=== PATIENT | male | born 1950 | race Caucasian/White ===

== ENCOUNTER → 2016-08-06 | Outpatient (CLI) | payer BC | END | disposition home or self-care (01) | LOC: MW.CHUR 08:37 | PROVIDERS: ATTEND Urology | DX: R97.20 Elevated prostate specific antigen [PSA] (principal); N42.9 Disorder of prostate, unspecified | CPT/HCPCS: 36415; 84153 ==

== ENCOUNTER 2017-04-03 21:09 | Emergency (ER) | payer BC, OTHER ==
[2017-04-03] MEDS ORDERED: Ketorolac 30 MG/ML SDV IVPUSH ONE (21:40)
[2017-04-03] MEDS ORDERED: Famotidine 20 MG/2 ML SDV IVPUSH ONE (21:40)
[2017-04-03] MEDS ORDERED: Alum Hydrox/Mag Hydrox/Simeth 15 ML, Metoclopramide 5 MG, Lidocaine 2% 5 ML PO ONE ×3 (21:40)
[2017-04-03] MEDS ORDERED: Aspirin 81 MG Tab.Chew PO ONE (21:40)
[2017-04-03 21:58] LABS: CHLORIDE,CL 107 mmol/L (98-110); SODIUM,NA 141 mmol/L (136-146)
--- NOTE | 2017-04-03 22:48 | EDM.PDOC ---
ED HPI GENERAL MEDICAL PROBLEM - General Chief Complaint: Chest Pain Stated Complaint: CHEST PAIN Time Seen by Provider: 04/03/17 21:30 Source of Information: Reports: Patient History Limitations: Reports: No Limitations - History of Present Illness INITIAL COMMENTS - FREE TEXT/NARRATIVE: History of present illness: [66-year-old male comes in complaining of chest pressure. Patient indicates he has been having the pressure intermittently for the last couple months. Patient indicates only thing that is different today is that he made significant other aware of the pain she is concerned that he is having cardiac issues. Patient has no significant risk factors he is nondiabetic, he does not smoke nor does anyone in his family have a history of cardiac problems.] Review of systems: As per history of present illness and below otherwise all systems reviewed and negative. Past medical history: As per history of present illness and as reviewed below otherwise noncontributory. Surgical history: As per history of present illness and as reviewed below otherwise noncontributory. Social history: No reported history of drug or alcohol abuse. Family history: As per history of present illness and as reviewed below otherwise noncontributory. Physical exam: HEENT: Atraumatic, normocephalic, pupils reactive, negative for conjunctival pallor or scleral icterus, mucous membranes moist, throat clear, neck supple, nontender, trachea midline. Lungs: Clear to auscultation, breath sounds equal bilaterally, chest nontender. Heart: S1S2, regular, negative for clicks, rubs, or JVD. Abdomen: Soft, nondistended, nontender. Negative for masses or hepatosplenomegaly. Negative for costovertebral tenderness. Pelvis: Stable nontender. Genitourinary: Deferred. Rectal: Deferred. Extremities: Atraumatic, negative for cords or calf pain. Neurovascular unremarkable. Neuro: Awake, alert, oriented. Cranial nerves II through XII unremarkable. Cerebellum unremarkable. Motor and sensory unremarkable throughout. Exam nonfocal. Global assessment is benign save the subjective complaint as noted in history of present illness. Patient indicates that the pressure is intermittent and substernal in nature it is nonradiating and it is self-limiting. Patient cannot identify anything that he is doing consistently that is transpiring when the pain occurs nor does he do anything to make the pain. Labs negative EKG negative for any acute findings This chest pain patient describes is subacute we'll dialogue with him in regards to need for further workup such as cardiac treadmill and or thallium stress test. Diagnostics: [CBC, CMP, troponin, chest x-ray, EKG] Therapeutics: [Toradol, GI cocktail, aspirin] Impression: [Atypical chest pain] Plan: [Refer to cardiology and primary care for further management] Definitive disposition and diagnosis as appropriate pending reevaluation and review of above. chest Pain Score (Numeric/FACES): 4 - Related Data Allergies Allergy/AdvReac Type Severity Reaction Status Date / Time No Known Allergies Allergy Verified 04/03/17 21:21 Home Meds: Home Meds . [No Known Home Meds] 04/03/17 [History] Past Medical History - Past Health History Medical/Surgical History: Denies Medical/Surgical History Musculoskeletal History: Reports: Other (See Below) Other Musculoskeletal History: bad shoulder Social & Family History - Family History Family Medical History: Noncontributory - Tobacco Use Smoking Status *Q: Never Smoker - Recreational Drug Use Recreational Drug Use: No ED ROS GENERAL - Review of Systems Review Of Systems: See Below (See history of present illness) ED EXAM, GENERAL - Physical Exam Exam: See Below (See history of present illness) Course - Vital Signs Last Recorded V/S: Last Vital Signs Temp 36.4 C 04/03/17 21:09 Pulse 77 04/03/17 21:09 Resp 20 04/03/17 21:09 BP 161/87 H 04/03/17 21:09 Pulse Ox 95 04/03/17 21:09 - Orders/Labs/Meds Orders: Active Orders 24 hr Category Date Time Status EKG Documentation Completion [RC] STAT Care 04/03/17 21:40 Active Chest 2V [CR] Stat Exams 04/03/17 21:40 Ordered UA W/MICROSCOPIC [URIN] Stat Lab 04/03/17 21:40 Uncollected Saline Lock Insert [OM.PC] Stat Oth 04/03/17 21:40 Ordered Labs: Laboratory Tests 04/03/17 04/03/17 Range/Units 21:20 21:20 WBC 6.57 (4.0-11.0) K/uL RBC 4.27 L (4.50-5.90) M/uL Hgb 14.2 (13.0-17.0) g/dL Hct 41.2 (38.0-50.0) % MCV 96.5 (80.0-98.0) fL MCH 33.3 H (27.0-32.0) pg MCHC 34.5 (31.0-37.0) g/dL RDW Std Deviation 47.7 (28.0-62.0) fl RDW Coeff of Heide 14 (11.0-15.0) % Plt Count 229 (150-400) K/uL MPV 10.30 (7.40-12.00) fL Neut % (Auto) 53.4 (48.0-80.0) % Lymph % (Auto) 32.6 (16.0-40.0) % [place] % (Auto) 10.2 (0.0-15.0) % Eos % (Auto) 3.3 (0.0-7.0) % Baso % (Auto) 0.5 (0.0-1.5) % Neut # (Auto) 3.5 (1.4-5.7) K/uL Lymph # (Auto) 2.1 (0.6-2.4) K/uL [place] # (Auto) 0.7 (0.0-0.8) K/uL Eos # (Auto) 0.2 (0.0-0.7) K/uL Baso # (Auto) 0.0 (0.0-0.1) K/uL Nucleated RBC % 0.0 /100WBC Nucleated RBCs # 0 K/uL Sodium 141 (136-146) mmol/L Potassium 4.0 (3.5-5.1) mmol/L Chloride 107 (98-110) mmol/L Carbon Dioxide 25 (21-31) mmol/L BUN 16 (6.0-23.0) mg/dL Creatinine 1.1 (0.6-1.5) mg/dL Est Cr Clr Drug Dosing 85.50 mL/min Estimated GFR (MDRD) > 60.0 ml/min Glucose 109 (60-110) mg/dL Calcium 9.7 (8.8-10.8) mg/dL Total Bilirubin 0.3 (0.1-1.5) mg/dL AST 34 (5-40) IU/L ALT 45 (8-54) IU/L Alkaline Phosphatase 80 (40-150) Troponin I < 0.10 (0.0-0.29) NG/ML Total Protein 7.6 (6.0-8.0) g/dL Albumin 4.5 (3.4-4.8) g/dL Globulin 3.1 (2.0-3.5) g/dL Albumin/Globulin Ratio 1.5 (1.3-2.8) Amylase 59 (10-90) U/L Lipase 26 (7-80) U/L Meds: Medications Discontinued Medications Generic Name Dose Route Start Last Admin Trade Name Fanny PRN Reason Stop Dose Admin Aspirin 324 mg 04/03/17 21:40 04/03/17 21:55 Aspirin PO 04/03/17 21:41 324 mg ONETIME ONE Administration Al Hydroxide/Mg Hydroxide 15 0 ml 04/03/17 21:40 04/03/17 21:53 ml/ Metoclopramide HCl 5 mg/ PO 04/03/17 21:41 25 each Lidocaine HCl 5 ml ONETIME ONE Administration Famotidine 20 mg 04/03/17 21:40 04/03/17 21:56 Pepcid IVPUSH 04/03/17 21:41 20 mg ONETIME ONE Administration Ketorolac Tromethamine 30 mg 04/03/17 21:40 04/03/17 21:56 Toradol IVPUSH 04/03/17 21:41 30 mg ONETIME ONE Administration Departure - Departure Time of Disposition: 22:47 Disposition: Home, Self-Care 01 Condition: Good Clinical Impression: Atypical chest pain - Discharge Information Referrals: Gibran Thurston MD [Primary Care Provider] - Additional Instructions: The following information is given to patients seen in the emergency department who are being discharged to home. This information is to outline your options for follow-up care. We provide all patients seen in our emergency department with a follow-up referral. The need for follow-up, as well as the timing and circumstances, are variable depending upon the specifics of your emergency department visit. If you don't have a primary care physician on staff, we will provide you with a referral. We always advise you to contact your personal physician following an emergency department visit to inform them of the circumstance of the visit and for follow-up with them and/or the need for any referrals to a consulting specialist. The emergency department will also refer you to a specialist when appropriate. This referral assures that you have the opportunity for follow-up care with a specialist. All of these measure are taken in an effort to provide you with optimal care, which includes your follow-up. Under all circumstances we always encourage you to contact your private physician who remains a resource for coordinating your care. When calling for follow-up care, please make the office aware that this follow-up is from your recent emergency room visit. If for any reason you are refused follow-up, please contact the [facility] Emergency Department at and asked to speak to the emergency department charge nurse. Follow-up with primary care provider for referral to cardiology for more invasive diagnostic tests such as a stress treadmill Turn to ED as needed as discussed - My Orders Last 24 Hours: My Active Orders 04/03/17 21:40 EKG Documentation Completion [RC] STAT Chest 2V [CR] Stat UA W/MICROSCOPIC [URIN] Stat Saline Lock Insert [OM.PC] Stat - Assessment/Plan Last 24 Hours: My Active Orders 04/03/17 21:40 EKG Documentation Completion [RC] STAT Chest 2V [CR] Stat UA W/MICROSCOPIC [URIN] Stat Saline Lock Insert [OM.PC] Stat
--- NOTE | 2017-04-04 09:06 | CR ---
EXAM DATE: 04/03/17 PATIENT'S AGE: 66 Patient: CROW ESPARZA Facility: [place], [place] Site . Site : 1950 Study: XRay Chest [id number]/3/2018 10:53:38 PM Ordering Physician: Doctor Cormier Final Report: INDICATIONS: Chest pain. TECHNIQUE: Chest 2 view. COMPARISON: None FINDINGS: No pneumothorax or pleural effusion. Lungs are clear. Cardiac and mediastinal contours are within normal limits. Upper abdomen and osseous structures show no acute abnormality. IMPRESSION: No evidence of acute cardiopulmonary disease. Dictated by Kendall Holliday MD @ 04/03/2017 10:56:55 PM Dictated by: Kendall Holliday MD @ 04/03/2017 22:57:04 (Electronic Signature) Report Signed by Proxy. [facility]Leon
== END 2017-04-03 23:16 | disposition home or self-care (01) ==
LOC: MW.ED 21:09
DX: R07.89 Other chest pain (principal)
CPT/HCPCS: 71046; 80053; 82150; 83690; 84484; 85025; 96374; 96375; 99285; A9270; J1885; 93005; 99283

== ENCOUNTER 2020-05-05 10:45 | Emergency (ER) | payer MEDICARE, BC ==
[2020-05-05] MEDS ORDERED: Sodium Chloride 0.9% 2.5 ML Syringe FLUSH PRN (10:56)
[2020-05-05] MEDS ORDERED: Sodium Chloride 0.9% 10 ML Syringe FLUSH PRN (10:56)
--- NOTE | 2020-05-05 10:59 | EDM.PDOC ---
ED HPI GENERAL MEDICAL PROBLEM - General Chief Complaint: Abdominal Pain Stated Complaint: abd pain Time Seen by Provider: 05/05/20 10:56 Source of Information: Reports: Patient History Limitations: Reports: No Limitations - History of Present Illness INITIAL COMMENTS - FREE TEXT/NARRATIVE: 69-year-old male with history of right inguinal hernia repair, HTN, HLD presents with abdominal pain. He notes right lower quadrant pain that has been waxing and waning over the past 6 months but today at 7:30 in the morning pain got worse to a 7/10 in severity, described as aching sensation, nonradiating, he was sitting at his chair drinking coffee when it happened. Currently pain is improved to 3/10. Patient denies fever, chills, headache, chest pain, shortness of breath, dysuria, nausea, vomiting, diarrhea, focal numbness or weakness. Last bowel movement was today. ROS: A 10-point review of systems, other than pertinent positives and negatives as stated per HPI, is otherwise negative Past medical history: No additional pertinent history Past Surgical history: No additional pertinent history Social history: No additional pertinent history Family history: No additional pertinent history PHYSICAL EXAM General: AOx4, GCS = 15, No distress HEENT: dry mucous membrane Neck: supple, no meningismus, no Kernig or Brudzinski Cardiac: S1S2 RRR Respiratory: CTAB, no crackles or rales, no wheezing Abdomen: Soft, nontender, no rebound or guarding, nondistended, no pulsatile mass. Back: nontender Musculoskeletal: NVI distally, no deformity Neuro: No focal deficits, CN 2 - 12 WNL. right lower abdominal pain Pain Score (Numeric/FACES): 3 - Related Data Allergies Allergy/AdvReac Type Severity Reaction Status Date / Time Sulfa (Sulfonamide Allergy Other Verified 05/05/20 11:17 Antibiotics) Home Meds: Home Meds Dicyclomine [Bentyl] 10 mg PO QIDACANDBED #12 cap 05/05/20 [Rx] Telmisartan 40 mg PO DAILY 05/05/20 [History] atorvaSTATin [Lipitor] 10 mg PO DAILY 05/05/20 [History] valACYclovir [Valtrex] 500 mg PO DAILY 05/05/20 [History] Past Medical History - Past Health History Medical/Surgical History: Denies Medical/Surgical History Musculoskeletal History: Reports: Other (See Below) Other Musculoskeletal History: bad shoulder Social & Family History - Family History Family Medical History: No Pertinent Family History ED ROS GENERAL - Review of Systems Review Of Systems: See Below (see dictation) ED EXAM, GENERAL - Physical Exam Exam: See Below (see dictation) #1 Interpretation EKG Interpretation Comments: Heart rate = 63bpm, normal sinus rhythm, normal QRS interval, no STEMI. EKG and rhythm strip interpreted by me at 1131 Course - Vital Signs Last Recorded V/S: Last Vital Signs Temp Pulse 70 05/05/20 11:20 Resp 18 05/05/20 11:20 BP 133/81 05/05/20 11:20 Pulse Ox 98 05/05/20 11:20 - Orders/Labs/Meds Orders: Active Orders 24 hr Category Date Time Status Cardiac Monitoring [RC] . DIRECTED Care 05/05/20 10:56 Active EKG Documentation Completion [RC] STAT Care 05/05/20 10:57 Active Pulse Oximetry [RC] ASDIRECTED Care 05/05/20 10:56 Active Sodium Chloride 0.9% [Saline Flush] Med 05/05/20 10:56 Active 10 ml FLUSH ASDIRECTED PRN Sodium Chloride 0.9% [Saline Flush] Med 05/05/20 10:56 Active 2.5 ml FLUSH ASDIRECTED PRN Saline Lock Insert [OM.PC] Stat Oth 05/05/20 10:57 Ordered Medication Orders Sodium Chloride (Saline Flush) 10 ml FLUSH ASDIRECTED PRN PRN Reason: Keep Vein Open Last Admin: 05/05/20 11:26 Dose: 10 ml Documented by: LUIS Sodium Chloride (Saline Flush) 2.5 ml FLUSH ASDIRECTED PRN PRN Reason: Keep Vein Open Last Admin: 05/05/20 11:26 Dose: 2.5 ml Documented by: LUIS Labs: Laboratory Tests 05/05/20 05/05/20 05/05/20 Range/Units 11:25 11:25 11:25 WBC 10.74 (4.0-11.0) K/uL RBC 3.99 L (4.50-5.90) M/uL Hgb 12.8 L (13.0-17.0) g/dL Hct 39.3 (38.0-50.0) % MCV 98.5 H (80.0-98.0) fL MCH 32.1 H (27.0-32.0) pg MCHC 32.6 (31.0-37.0) g/dL RDW Std Deviation 51.1 (28.0-62.0) fl RDW Coeff of [place] 14 (11.0-15.0) % Plt Count 245 (150-400) K/uL MPV 9.80 (7.40-12.00) fL Neut % (Auto) 82.9 H (48.0-80.0) % Lymph % (Auto) 8.3 L (16.0-40.0) % [place] % (Auto) 7.6 (0.0-15.0) % Eos % (Auto) 0.7 (0.0-7.0) % Baso % (Auto) 0.5 (0.0-1.5) % Neut # (Auto) 8.9 H (1.4-5.7) K/uL Lymph # (Auto) 0.9 (0.6-2.4) K/uL [place] # (Auto) 0.8 (0.0-0.8) K/uL Eos # (Auto) 0.1 (0.0-0.7) K/uL Baso # (Auto) 0.1 (0.0-0.1) K/uL Nucleated RBC % 0.0 /100WBC Nucleated RBCs # 0 K/uL Lactate 1.2 (0.20-2.00) mmol/L Sodium 139 (136-148) mmol/L Potassium 4.7 (3.5-5.1) mmol/L Chloride 102 (98-107) mmol/L Carbon Dioxide 26.3 (21.0-32.0) mmol/L BUN 14 (7.0-18.0) mg/dL Creatinine 1.3 (0.8-1.3) mg/dL Est Cr Clr Drug Dosing 69.49 mL/min Estimated GFR (MDRD) 55.1 ml/min Glucose 122 H (74-106) mg/dL Calcium 9.5 (8.5-10.1) mg/dL Total Bilirubin 0.5 (0.2-1.0) mg/dL AST 29 (15-37) IU/L ALT 41 (14-63) IU/L Alkaline Phosphatase 122 H (46-116) U/L Troponin I < 0.050 (0.000-0.056) ng/mL Total Protein 7.7 (6.4-8.2) g/dL Albumin 3.9 (3.4-5.0) g/dL Globulin 3.8 (2.6-4.0) g/dL Albumin/Globulin Ratio 1.0 (0.9-1.6) Lipase 77 (73-393) U/L Urine Color Urine Appearance Urine pH (5.0-8.0) Ur Specific [place] (1.001-1.035) Urine Protein (NEGATIVE) mg/dL Urine Glucose (UA) (NEGATIVE) mg/dL Urine Ketones (NEGATIVE) mg/dL Urine Occult Blood (NEGATIVE) Urine Nitrite (NEGATIVE) Urine Bilirubin (NEGATIVE) Urine Urobilinogen (<2.0) EU/dL Ur Leukocyte Esterase (NEGATIVE) Urine RBC (0-2/HPF) Urine WBC (0-5/HPF) Ur Epithelial Cells (NONE-FEW) Urine Bacteria (NEGATIVE) 05/05/20 Range/Units 13:54 WBC (4.0-11.0) K/uL RBC (4.50-5.90) M/uL Hgb (13.0-17.0) g/dL Hct (38.0-50.0) % MCV (80.0-98.0) fL MCH (27.0-32.0) pg MCHC (31.0-37.0) g/dL RDW Std Deviation (28.0-62.0) fl RDW Coeff of [place] (11.0-15.0) % Plt Count (150-400) K/uL MPV (7.40-12.00) fL Neut % (Auto) (48.0-80.0) % Lymph % (Auto) (16.0-40.0) % [place] % (Auto) (0.0-15.0) % Eos % (Auto) (0.0-7.0) % Baso % (Auto) (0.0-1.5) % Neut # (Auto) (1.4-5.7) K/uL Lymph # (Auto) (0.6-2.4) K/uL [place] # (Auto) (0.0-0.8) K/uL Eos # (Auto) (0.0-0.7) K/uL Baso # (Auto) (0.0-0.1) K/uL Nucleated RBC % /100WBC Nucleated RBCs # K/uL Lactate (0.20-2.00) mmol/L Sodium (136-148) mmol/L Potassium (3.5-5.1) mmol/L Chloride (98-107) mmol/L Carbon Dioxide (21.0-32.0) mmol/L BUN (7.0-18.0) mg/dL Creatinine (0.8-1.3) mg/dL Est Cr Clr Drug Dosing mL/min Estimated GFR (MDRD) ml/min Glucose (74-106) mg/dL Calcium (8.5-10.1) mg/dL Total Bilirubin (0.2-1.0) mg/dL AST (15-37) IU/L ALT (14-63) IU/L Alkaline Phosphatase (46-116) U/L Troponin I (0.000-0.056) ng/mL Total Protein (6.4-8.2) g/dL Albumin (3.4-5.0) g/dL Globulin (2.6-4.0) g/dL Albumin/Globulin Ratio (0.9-1.6) Lipase (73-393) U/L Urine Color DARK YELLOW Urine Appearance HAZY Urine pH 6.0 (5.0-8.0) Ur Specific [place] >= 1.030 (1.001-1.035) Urine Protein NEGATIVE (NEGATIVE) mg/dL Urine Glucose (UA) NEGATIVE (NEGATIVE) mg/dL Urine Ketones TRACE H (NEGATIVE) mg/dL Urine Occult Blood MODERATE H (NEGATIVE) Urine Nitrite NEGATIVE (NEGATIVE) Urine Bilirubin NEGATIVE (NEGATIVE) Urine Urobilinogen 0.2 (<2.0) EU/dL Ur Leukocyte Esterase NEGATIVE (NEGATIVE) Urine RBC 5-10 (0-2/HPF) Urine WBC 0-3 (0-5/HPF) Ur Epithelial Cells RARE (NONE-FEW) Urine Bacteria 1+ H (NEGATIVE) Meds: Medications Generic Name Dose Route Start Last Admin Trade Name Fanq PRN Reason Stop Dose Admin Sodium Chloride 10 ml 05/05/20 10:56 05/05/20 11:26 Saline Flush FLUSH 10 ml ASDIRECTED PRN Administration Keep Vein Open Sodium Chloride 2.5 ml 05/05/20 10:56 05/05/20 11:26 Saline Flush FLUSH 2.5 ml ASDIRECTED PRN Administration Keep Vein Open - Re-Assessments/Exams Free Text/Narrative Re-Assessment/Exam: 05/05/20 12:42 I reassessed this patient, his abdominal pain is improved, he is in no distress, repeat abdominal exam is soft, no rebound or guarding, nontender diffusely. 05/05/20 1510 His pain is resolved. He is currently stable for discharge with a strainer. I performed a repeat exam and did not appreciate new abnormal findings. Patient exhibits normal vital signs and has a normal gait on road test. I advised the patient to return to the ER for reevaluation if symptoms worsened, including fever, worsening pain, or any other worrisome symptoms. I instructed the patient to follow up with Dr. Veloz within 1 week MEDICAL DECISION MAKING: I reviewed the patients past medical records, lab and radiographic findings. I discussed the case with the patient. My differential diagnosis included: Ureterolithiasis, UTI, appendicitis. CT demonstrated multiple renal calculi and a recently passed stone in the bladder. Urine did not demonstrate UTI. His kidney function is unremarkable. He is pain-free in the ER. Amendable for outpatient follow-up with urology. Departure - Departure Time of Disposition: 15:12 Disposition: Home, Self-Care 01 Condition: Good Clinical Impression: Abdominal pain, Bilateral kidney stones - Discharge Information *PRESCRIPTION DRUG MONITORING PROGRAM REVIEWED*: Not Applicable *COPY OF PRESCRIPTION DRUG MONITORING REPORT IN PATIENT SAMIA: Not Applicable Prescriptions: Dicyclomine [Bentyl] 10 mg PO QIDACANDBED #12 cap Instructions: Abdominal Pain, Adult, [id number], Kidney Stones, [id number], Dietary Guidelines to Help Prevent Kidney Stones Referrals: Gibran Thurston MD [Primary Care Provider] - 3 Days Jean Veloz MD [Physician] - 1 Week Forms: ED Department Discharge Additional Instructions: The need for follow-up, as well as the timing and circumstances, are variable depending upon the specifics of your emergency department visit. If you don't have a primary care physician on staff, we will provide you with a referral. We always advise you to contact your personal physician following an emergency department visit to inform them of the circumstance of the visit and for follow-up with them and/or the need for any referrals to a consulting specialist. The emergency department will also refer you to a specialist when appropriate. This referral assures that you have the opportunity for follow-up care with a specialist. All of these measure are taken in an effort to provide you with optimal care, which includes your follow-up. Under all circumstances we always encourage you to contact your private physician who remains a resource for coordinating your care. When calling for follow-up care, please make the office aware that this follow-up is from your recent emergency room visit. If for any reason you are refused follow-up, please contact the [facility] Emergency Department at and asked to speak to the emergency department charge nurse. If you do not have a primary care doctor, please follow up with the clinics below within 3-5 days. [facility] [address] [place] [id number] [address] Sepsis Event Note (ED) - Focused Exam Vital Signs: Vital Signs Pulse Resp BP Pulse Ox 05/05/20 11:20 70 18 133/81 98 - My Orders Last 24 Hours: My Active Orders 05/05/20 10:56 Cardiac Monitoring [RC] . DIRECTED Pulse Oximetry [RC] ASDIRECTED Sodium Chloride 0.9% [Saline Flush] 10 ml FLUSH ASDIRECTED PRN Sodium Chloride 0.9% [Saline Flush] 2.5 ml FLUSH ASDIRECTED PRN 05/05/20 10:57 EKG Documentation Completion [RC] STAT Saline Lock Insert [OM.PC] Stat - Assessment/Plan Last 24 Hours: My Active Orders 05/05/20 10:56 Cardiac Monitoring [RC] . DIRECTED Pulse Oximetry [RC] ASDIRECTED Sodium Chloride 0.9% [Saline Flush] 10 ml FLUSH ASDIRECTED PRN Sodium Chloride 0.9% [Saline Flush] 2.5 ml FLUSH ASDIRECTED PRN 05/05/20 10:57 EKG Documentation Completion [RC] STAT Saline Lock Insert [OM.PC] Stat
[2020-05-05 12:28] LABS: BLOOD UREA NITROGEN,BUN 14 mg/dL (7.0-18.0); CARBON DIOXIDE,CO2 26.3 mmol/L (21.0-32.0); CHLORIDE,CL 102 mmol/L (98-107); GLUCOSE RANDOM 122 mg/dL (74-106); LIPASE 77 U/L (73-393); POTASSIUM,K 4.7 mmol/L (3.5-5.1); SODIUM,NA 139 mmol/L (136-148)
--- NOTE | 2020-05-05 13:51 | CT ---
EXAM DATE: 05/05/20 PATIENT'S AGE: 69 Patient: CROW ESPARZA Facility: [facility] Site . Site : 1950 Study: CT-Abdomen/Pelvis-05/05/2020 1:13:54 PM Ordering Physician: JILL Final Report: INDICATION: Abdominal pain TECHNIQUE: CT abdomen and pelvis without contrast. COMPARISON: None. FINDINGS: Lower chest: Unremarkable. Liver: Unremarkable. Spleen: Unremarkable. Pancreas: Unremarkable. Gallbladder and bile ducts: Unremarkable. Adrenal glands: Unremarkable. Kidneys: Mild right hydronephrosis and hydroureter. No collecting system stone is seen but there is the 2.5 mm stone within the urinary bladder near the right ureterovesical junction. There are 3 renal stones in the right kidney, the largest measuring 6 mm. There is a single nonobstructive 2 mm left-sided renal stone. Multiple left parapelvic cysts are noted. No left hydronephrosis. There is bilateral fat stranding around both kidneys. GI tract: Colonic diverticulosis. Appendix is normal. Vascular structures: Unremarkable. Lymph nodes: Unremarkable. Miscellaneous: Fat containing umbilical hernia. No free air or significant free fluid. Pelvic Organs: Unremarkable. Bones: Status post right hip arthroplasty. IMPRESSION: Mild right hydronephrosis and hydroureter. No collecting system stone is seen but there is the 2.5 mm stone within the urinary bladder near the right ureterovesical junction, consistent with recently passed stone. Additional stones are seen in both kidneys. Left parapelvic cysts. No left hydronephrosis. Colonic diverticulosis. Status post right hip arthroplasty. Please note that all CT scans at this facility use dose modulation, iterative reconstruction, and/or weight-based dosing when appropriate to reduce radiation dose to as low as reasonably achievable. Dictated by Maren Moore MD @ May 05 2020 1:31PM Signed by: Maren Moore MD @05/05/2020 1:31:51 PM (Electronic Signature) Report Signed by Proxy. [facility]
== END 2020-05-05 15:23 | disposition home or self-care (01) ==
LOC: MW.ED 10:45
DX: N13.2 Hydronephrosis with renal and ureteral calculous obstruction (principal); I10 Essential (primary) hypertension; E78.5 Hyperlipidemia, unspecified; Z88.2 Allergy status to sulfonamides; Z79.899 Other long term (current) drug therapy
CPT/HCPCS: 36415; 74176; 74176-26; 80053; 81001; 83605; 83690; 84484; 85025; 93005; 93010; 99283; 99284-25

== ENCOUNTER 2023-11-13 08:39 | Emergency (ER) | payer MEDICARE ==
[2023-11-13] MEDS: Acetaminophen 500 MG Tab PO ONE ×2 (09:04→09:52)
[2023-11-13] MEDS: Ibuprofen 600 MG Tab PO ONE (09:05)
[2023-11-13] MEDS: Dexamethasone 4 MG Tab PO ONE (09:05)
[2023-11-13] MEDS: Lidocaine 4% 1 each Patch TOP ONE (09:06)
[2023-11-13] MEDS: Sodium Chloride 0.9% 1,000 ML IV ONE (09:51)
[2023-11-13] MEDS: tiZANidine 4 MG Tab PO ONE (10:27)
[2023-11-14] MEDS ORDERED: tiZANidine 4 MG Tab PO SCH (09:00)
== END 2023-11-13 10:30 | disposition home or self-care (01) ==
LOC: MW.ED 08:39
DX: M54.16 Radiculopathy, lumbar region (principal); M54.42 Lumbago with sciatica, left side; M48.062 Spinal stenosis, lumbar region with neurogenic claudication; I10 Essential (primary) hypertension; E78.00 Pure hypercholesterolemia, unspecified; Z88.2 Allergy status to sulfonamides; Z79.899 Other long term (current) drug therapy
CPT/HCPCS: 72131; 99283; A9270; J8540